=== PATIENT | female | born 1970 | race Caucasian/White ===

== ENCOUNTER 2020-04-07 08:06 | Outpatient (CLI) | payer MEDICAID ==
--- NOTE | 2020-04-07 12:31 | MRI Report ---
PROCEDURE: Hip LT W/O INDICATIONS: LUMBAR INTERVERTEBRAL DISC DEGENERATION TECHNIQUE: Noncontrast coronal T1 spin echo and STIR through the bony pelvis. Coronal and axial T2 fast spin ec ho with fat saturation, sagittal T1 spin echo, and oblique axial T2 fast spin echo with fat saturatio n through the hip. COMPARISON: None. FINDINGS: Image quality: Excellent. Bones and joints: Bone marrow of the pelvic ring and proximal femurs show normal signal throughout. No intraosseous lesions or fractures. No avascular necrosis of the femoral heads. Disc desiccation and mild facet hypertrophy are seen in the included lower lumbar spine. Tendons: There is mild distal left gluteus medius and minimus tendinosis, with similar findings on th e contralateral right side. The iliopsoas tendon appears intact, without adjacent bursal fluid colle ctions. The origin of the hamstring tendon is intact at the ischial tuberosity. Labrum and cartilage: There is mild degeneration of the anterior and superior acetabular labrum with out a discrete tear. No full-thickness cartilage defect is seen. The morphology of the femoral head a nd acetabulum appears normal. Soft tissues: Visualized muscles demonstrate normal bulk and internal signal. The proximal sciatic neurovascular bundle appears normal adjacent to the hamstring tendons. No free pelvic fluid. Bladde r wall thickness is normal. Genitourinary structures and bowel loops appear normal where visualized. IMPRESSION: 1. Mild degeneration of the anterosuperior labrum without a discrete labral tear. 2. Mild distal gluteus medius and gluteus minimus tendinosis bilaterally. 3. Degenerative changes in the lower lumbar spine are better evaluated on dedicated lumbar spine MRI performed on the same day. Reviewed by: Marc Gonzalez MD on 04/07/2020 12:29 PM PST Approved by: Marc Gonzalez MD on 04/07/2020 12:29 PM PST Station ID: [id number]
--- NOTE | 2020-04-07 16:06 | MRI Report ---
PROCEDURE: Lumbar Spine W/O INDICATIONS: LUMBAR INTERVERTEBRAL DISC DEGENERATION TECHNIQUE: Noncontrast sagittal T1 spin echo and T2 fast echo, sagittal STIR, axial T1 and T2 fast spin echo thr ough the lumbar spine. In cases with scoliosis, additional coronal T2 fast spin echo may be performe d. COMPARISON: None. FINDINGS: Image quality: Excellent. Alignment and Curvature: There is trace retrolisthesis of L4 on L5. Bone Marrow: Marrow is of normal overall signal. No acute vertebral body compression fractures. Spinal Cord: Conus medullaris terminates at the L1 level. Visualized cord demonstrates normal signa l and size. Paraspinous Soft Tissues: No paravertebral masses. Discs: Mild to moderate desiccation is present L4-5, L5-S1. L1-L2: Minimal disc bulge without spinal stenosis or foraminal narrowing. L2-L3: Minimal disc bulge without spinal stenosis or foraminal narrowing. Mild ligamentum flavum h ypertrophy. L3-L4: Minimal disc bulge without spinal stenosis or foraminal narrowing. Ligamentum flavum hypertr ophy is present. L4-L5: Mild disc bulge with minimal canal narrowing. Mild bilateral foraminal narrowing with facet and ligamentum flavum hypertrophy. L5-S1: Mild disc bulge without spinal stenosis. Minimal left foraminal narrowing. IMPRESSION: 1. Minimal to mild multilevel disc bulges. 2. Minimal to mild bilateral foraminal narrowing most notable L4-5 secondary to retrolisthesis as wel l as facet/ligament of flavum arthropathy. Reviewed by: Petra Jones MD on 04/07/2020 3:04 PM [facility] Approved by: Petra Jones MD on 04/07/2020 3:04 PM [facility] Station ID: [id number]
== END 2020-04-07 08:07 | disposition home or self-care (01) ==
LOC: DI 08:06
PROVIDERS: ATTEND Internal Medicine
DX: M43.16 Spondylolisthesis, lumbar region (principal); M47.816 Spondylosis without myelopathy or radiculopathy, lumbar region; R93.6 Abnormal findings on diagnostic imaging of limbs
CPT/HCPCS: 72148

== ENCOUNTER 2020-12-11 07:42 | Outpatient (CLI) | payer MEDICAID ==
--- NOTE | 2020-12-11 09:16 | Ultrasound Report ---
PROCEDURE: Abdomen Complete INDICATIONS: IBS TECHNIQUE: Real-time scanning was performed of the abdominal and retroperitoneal organs, with image documentatio n. COMPARISON: None. FINDINGS: Liver: Increased hepatic parenchymal echogenicity indicative of hepatic steatosis.. Gallbladder: Normal without findings of cholecystitis or cholelithiasis. Threshold enlarged lymph nod e near the gallbladder neck in the periportal region measures 1.3 cm in short axis diameter. Biliary ducts: Normal caliber intrahepatic and extra hepatic biliary ducts. Pancreas: Visualized portions of the pancreas are sonographically normal. Spleen: Spleen is normal in size and homogeneous in echotexture. Kidneys: Normal size and appearance of both kidneys. Nonobstructing right renal calculus in the infer ior pole suspected, measuring approximately 3 mm. Aorta: Visualized aorta is normal in caliber at less than 3 cm. Iliacs: Proximal common iliac arteries are normal in caliber at less than 2.5 cm. IVC: Intrahepatic inferior vena cava is patent. Miscellaneous: No free abdominal fluid. IMPRESSION: Threshold enlarged lymph node in the periportal/peripancreatic region measuring 1.3 cm short axis milly meter. A CT of the abdomen and pelvis with IV contrast is recommended for further evaluation. Mild hepatic steatosis. Nonobstructing right renal calculus. Reviewed by: Abdulkadir Nieto MD on 12/11/2020 9:14 AM PDT Approved by: Abdulkadir Nieto MD on 12/11/2020 9:14 AM PDT Station ID: [id number]
== END 2020-12-11 07:43 | disposition home or self-care (01) ==
LOC: DI 07:42
PROVIDERS: ATTEND Internal Medicine
DX: R59.0 Localized enlarged lymph nodes (principal); K76.0 Fatty (change of) liver, not elsewhere classified; N20.0 Calculus of kidney

== ENCOUNTER 2021-01-09 09:21 | Outpatient (CLI) | payer MEDICAID ==
--- NOTE | 2021-01-09 10:32 | XRAY Report ---
PROCEDURE: Hips 2V BILAT INDICATIONS: BILATERAL ARTHRALGIA, IBS TECHNIQUE: 4 views of the hip were acquired. COMPARISON: 04/07/2020 left hip MRI FINDINGS: Bones: No fractures or dislocations. No suspicious bony lesions. Minimal osteophyte formation of t he acetabula bilaterally. The visualized pelvic ring appears intact. Soft tissues: No suspicious soft tissue calcifications or masses. Calcified phleboliths in the pelv is. IMPRESSION: 1. No acute bony abnormality. 2. Minimal degenerative change of the hips. Reviewed by: Ion Guerra on 01/09/2021 9:31 AM [facility] Approved by: Ion Guerra on 01/09/2021 9:31 AM [facility] Station ID: [id number]
--- NOTE | 2021-01-09 10:45 | CT Report ---
PROCEDURE: Abdomen/Pelvis WO INDICATIONS: BILATERAL ARTHRALGIA, IBS TECHNIQUE: Noncontrast 5 mm thick sections acquired from the diaphragms to the symphysis. 5 mm coronal and sagi ttal reformats were then performed. For radiation dose reduction, the following was used: automated exposure control, adjustment of mA and/or kV according to patient size. COMPARISON: None. FINDINGS: Image quality: Excellent. ABDOMEN: Lung bases: Subsegmental atelectasis in the lingula. No focal consolidation. Subpleural nodular opaci ty at the left lung base is compatible with a normal lymph node. Heart size is normal. Solid organs: Liver and spleen are normal in size. Subcentimeter focal hypodensity in the left hepa tic lobe is too small to characterize further but statistically likely to represent a simple cyst. Ga llbladder is unremarkable. Pancreas is normal in contours. No adrenal nodules. Kidneys are normal in size, without hydronephrosis. Two psunctate nonobstructing right kidney stones. Peritoneum and bowel: Unenhanced bowel loops demonstrate normal wall thickness and caliber. Normal appendix. No free fluid or air. Nodes and vessels: No retroperitoneal or mesenteric adenopathy by size criteria. Aorta and inferior vena cava are normal in caliber. Vascular calcification of the abdominal aorta. Miscellaneous: No ventral hernias. PELVIS: Genitourinary: Bladder wall thickness is normal. Miscellaneous: No inguinal hernias or adenopathy. Bones: No suspicious bony lesions. No vertebral body compression fractures. IMPRESSION: 1. No acute intra-abdominal abnormality. 2. Nonobstructing punctate right kidney stones. Reviewed by: Ion Guerra on 01/09/2021 9:44 AM [facility] Approved by: Ion Guerra on 01/09/2021 9:44 AM [facility] Station ID: [id number]
== END 2021-01-09 09:22 | disposition home or self-care (01) ==
LOC: DI 09:21
PROVIDERS: ATTEND Internal Medicine
DX: M16.0 Bilateral primary osteoarthritis of hip (principal); K58.8 Other irritable bowel syndrome; N20.0 Calculus of kidney

== ENCOUNTER 2021-01-18 12:02 | Emergency (ER) | payer MEDICAID ==
--- NOTE | 2021-01-18 12:38 | XRAY Report ---
PROCEDURE: Chest 2 View X-Ray INDICATIONS: cough TECHNIQUE: 2 view(s) of the chest. COMPARISON: None. FINDINGS: Surgical changes and devices: None. Lungs and pleura: No pleural effusions or pneumothorax. Lungs are clear. Flattening of the hemidia phragms can be seen on the lateral view. Mediastinum: Mediastinal contours are normal. Heart size is normal. Bones and chest wall: No suspicious bony abnormalities. There is accentuated thoracic kyphosis. Ag e-appropriate degenerative changes are seen. Soft tissues appear unremarkable. IMPRESSION: Hyperexpanded lungs are seen, without an acute cardiopulmonary abnormality seen. Reviewed by: Jam Pino MD on 01/18/2021 11:37 AM [facility] Approved by: Jam Pino MD on 01/18/2021 11:37 AM [facility] Station ID: [id number]
[2021-01-18] MEDS ORDERED: IPRATROPIUM/ALBUTEROL 3 ML NEB INH STA (13:10)
[2021-01-18] MEDS ORDERED: predniSONE 20 MG TABLET PO STA (13:10)
[2021-01-18] MEDS ORDERED: BENZONATATE 100 MG CAPSULE PO STA (13:11)
--- NOTE | 2021-01-18 13:17 | ED Physician Documentation ---
PD HPI URI - Stated complaint Stated Complaint: COUGH/CONGESTION - Chief complaint Chief Complaint: Resp - History obtained from History obtained from: Patient - History of Present Illness Timing - onset: How many weeks ago (1) Timing duration: Weeks (1) Timing details: Gradual onset Pain level max: 3 Pain level now: 2 Associated symptoms: Nasal congestion, Rhinorrhea, Dry cough. No: Fever, Chills, Hemoptysis, Chest pain Contributing factors: Sick contact, COPD / asthma Improves by: Rest Worsened by: Activity, Breathing - Additional information Additional information: Patient is a 50-year-old female who has had her Covid vaccinations. She states that about a week ago started having cough, congestion. She has a history of COPD but currently does not have any inhalers. She states that she feels like she has increased coughing when she lies flat. The cough is mainly dry. She quit smoking about 9 months ago. Worse with deep breathing, nothing makes it better. No fevers. No chills. Review of Systems Constitutional: denies: Fever, Chills GI: denies: Vomiting, Diarrhea Skin: denies: Rash PD PAST MEDICAL HISTORY - Past Medical History Past Medical History: Yes Cardiovascular: Hypertension Respiratory: COPD - Past Surgical History Past Surgical History: No - Present Medications Home Medications: Ambulatory Orders Medication Instructions Recorded Confirmed Albuterol Sulf [Ventolin Hfa 1 - 2 puffs INH Q4HR PRN #1 inhaler 01/18/21 Inhaler] Benzonatate [Tessalon] 200 mg PO TID PRN #30 cap 01/18/21 predniSONE [Deltasone] 10 mg PO [id number] #42 tab 01/18/21 - Allergies Allergies/Adverse Reactions: Allergies Allergy/AdvReac Type Severity Reaction Status Date / Time Sulfa (Sulfonamide Allergy Emesis Verified 01/18/21 12:06 Antibiotics) - Living Situation Living Situation: reports: With family Living Arrangement: reports: At home PD ED PE NORMAL - Vitals Vital signs reviewed: Yes - General General: Alert and oriented X 3, No acute distress - HEENT HEENT: Ears normal, Moist mucous membranes, Pharynx benign - Neck Neck: Supple, no meningeal sign - Cardiac Cardiac: RRR - Respiratory Respiratory: No respiratory distress, Other (Mild wheezing bilaterally) - Abdomen Abdomen: Soft, Non tender, Non distended - Derm Derm: Warm and dry - Extremities Extremities: No edema, No calf tenderness / cord - Neuro Neuro: Alert and oriented X 3 - Psych Psych: Normal mood, Normal affect Results - Vitals Vitals: Vital Signs - 24 hr 01/18/21 01/18/21 01/18/21 12:06 14:10 14:56 Temperature 36.9 C 36.8 C Heart Rate 90 88 86 Respiratory 16 20 16 Rate Blood Pressure 150/88 H 130/80 O2 Saturation 98 100 Oxygen O2 Source Room air - Rads (name of study) Chest x-ray Radiology: Final report received, EMP read contemporaneously, See rad report (Hyperexpanded lungs, no pneumonia) PD MEDICAL DECISION MAKING - ED course Complexity details: reviewed results, re-evaluated patient, considered differential, d/w patient ED course: 50-year-old female with COPD. No acute findings on x-ray. Covid test sent. Given DuoNeb treatment, steroids and Tessalon. We will place her on a steroid taper for home, albuterol inhaler and Tessalon. Patient is well-appearing, nontoxic. Afebrile. No hypoxia. No respiratory distress. Patient counseled regarding signs and symptoms for which I believe and urgent re-evaluation would be necessary. Patient with good understanding of and agreement to plan and is comfortable going home at this time This document was made in part using voice recognition software. While efforts are made to proofread this document, sound alike and grammatical errors may occur. Departure - Departure Disposition: 01 Home, Self Care Clinical Impression: Viral URI, COPD, moderate Condition: Good Instructions: ED COPD Flare, ED Viral Syndrome Follow-Up: Hero Zavala MD [Primary Care Provider] - Within 1 week Prescriptions: Albuterol Sulf [Ventolin Hfa Inhaler] 1 - 2 puffs INH Q4HR PRN #1 inhaler PRN Reason: Shortness Of Air/Wheezing predniSONE [Deltasone] 10 mg PO [id number] #42 tab Benzonatate [Tessalon] 200 mg PO TID PRN #30 cap PRN Reason: Cough Comments: Use the inhaler and medications as prescribed. Return if you worsen. Follow-up with your doctor for further care. You do have a covid test pending. Your results can be viewed on the patient portal. You should receive a phone call for a positive result your [facility] [place] Discharge Date/Time: 01/18/21 14:56
[2021-01-18 14:58] VITALS: BP 130/80
== END 2021-01-18 14:56 | disposition home or self-care (01) ==
LOC: ED 12:02
DX: J44.9 Chronic obstructive pulmonary disease, unspecified (principal); J06.9 Acute upper respiratory infection, unspecified; B97.89 Other viral agents as the cause of diseases classified elsewhere; Z20.822 Contact with and (suspected) exposure to COVID-19; I10 Essential (primary) hypertension; Z87.891 Personal history of nicotine dependence
CPT/HCPCS: 71046; 87635; 94640; 94664; 99283; 99284; A9270; J7512